=== PATIENT | male | born 1945 | race Caucasian/White ===

== ENCOUNTER 2020-06-10 07:26 | Day surgery (SDC) | payer MEDICARE, OTHER ==
[2020-06-08 11:47] LABS: BASOPHILS % (AUTO) 0.5 % (0-1); EOSINOPHILS # (AUTO) 0.2 X10'3 (0-0.9); EOSINOPHILS % (AUTO) 1.6 % (0-6); HEMATOCRIT 42.4 % (42.0-52.0); HEMOGLOBIN 14.4 g/dl (14.0-17.9); LYMPHOCYTES # (AUTO) 2.1 X10'3 (1.1-4.8); LYMPHOCYTES % (AUTO) 21.3 % (21-51); MEAN CORPUSCULAR HEMOGLOBIN 30.5 PG (27.0-31.0); MEAN CORPUSCULAR VOLUME 89.8 FL (78-98); MEAN PLATELET VOLUME 11.4 FL (7.4-10.4); MONOCYTES # (AUTO) 0.8 X10'3 (0-0.9); MONOCYTES % (AUTO) 8.1 % (2-12); NEUTROPHILS # (AUTO) 6.8 X10'3 (1.8-7.7); NEUTROPHILS % (AUTO) 68.5 % (42-75); PLATELET COUNT 179 X10'3 (140-440); RED BLOOD COUNT 4.73 X10'6 (4.70-6.10); RED CELL DISTRIBUTION WIDTH 13.5 % (11.5-14.5)
[2020-06-08 11:57] LABS: PARTIAL THROMBOPLASTIN TIME 26 SECONDS (22-32)
[2020-06-08 12:01] LABS: ALANINE AMINOTRANSFERASE 35 U/L (12-78); ALBUMIN 2.2 G/DL (3.4-5.0); ALBUMIN/GLOBULIN RATIO 0.4 (1.1-1.5); ALKALINE PHOSPHATASE 37 IU/L (46-116); ANION GAP 7 (8-16); ASPARTATE AMINO TRANSFERASE 19 U/L (10-37); BILIRUBIN,TOTAL 0.4 MG/DL (0.1-1.0); BLOOD UREA NITROGEN 25 MG/DL (7-18); BUN/CREATININE RATIO 23.6 (5.4-32.0); CALCIUM 9.6 MG/DL (8.5-10.1); CHLORIDE 107 MMOL/L (99-107); CREATININE 1.06 MG/DL (0.60-1.10); GLUCOSE 124 MG/DL (70-104); POTASSIUM 4.2 MMOL/L (3.5-5.1); SODIUM 142 MMOL/L (135-145); TOTAL CARBON DIOXIDE 27.6 MMOL/L (24-32); TOTAL PROTEIN 7.5 G/DL (6.4-8.2); eGFR 68 ML/MIN
[~2020-06-10] VITALS: Ht 172.7 cm; Wt 116.6 kg
[2020-06-10] VITALS (11 sets, daily range): BP systolic 112–177; BP diastolic 51–88
[~2020-06-10 07:26] MED LIST: ALFU10TA10 PO; ASPI-1264 PO; CEPH-194 PO; CHOL100046 PO; CLOB15OI3 TP; FINA5TAB11 PO; FISH1CAP15 PO; FOLI0.4T2 PO; HYDR-3686 PO; HYDR-3964 PO; METO100T7 PO; ROSU10TA2 PO; VITA1CAP PO; VITC500T PO; ZOLP10TA5 PO
[2020-06-10] MEDS ORDERED: nitroGLYCERIN 0.4mg SUBLingual tab SL PRN (08:05)
[2020-06-10] MEDS ORDERED: diphenhydrAMINE 25mg capsule PO PRN (08:10)
[2020-06-10] MEDS ORDERED: normal saline 1,000 ML IV SCH (08:10)
[2020-06-10] MEDS ORDERED: HYDR12.55 PO (08:23)
[2020-06-10] MEDS ORDERED: LOSA50TA64 PO (08:23)
[2020-06-10] MEDS ORDERED: NITR0.4T48 SL (08:23)
[2020-06-10] MEDS ORDERED: ASPI-611 PO (08:24)
[2020-06-10] MEDS ORDERED: LORazepam 0.5 MG tablet PO PRN (08:45)
[2020-06-10] MEDS ORDERED: iohexol 350 MG/ML 50ML vial IV ONE ×2 (09:08→09:50)
[2020-06-10] MEDS ORDERED: midazolam 2 mg/2 ml injection ONE ×2 (09:08→09:38)
[2020-06-10] MEDS ORDERED: LIDOcaine 1% (10mg/ml)w/preservative injection 20ml MDV ONE (09:08)
[2020-06-10] MEDS ORDERED: fentaNYL/PF 50MCG/1 ML 2ML syringe ONE (09:08)
[2020-06-10] MEDS ORDERED: iohexol 350MG/ML 100ml bottle IV ONE ×2 (09:09→09:49)
[2020-06-10] MEDS ORDERED: ondansetron/PF 4mg/2ml inj IV PRN (11:25)
[2020-06-10] MEDS ORDERED: OXAZEpam 15mg capsule PO PRN (11:30)
[2020-06-10] MEDS ORDERED: HYDROcodone/acetaminophen 10/325mg tab PO PRN (11:30)
[2020-06-10] MEDS ORDERED: HYDROcodone/acetaminophen 5mg/325mg tablet PO PRN (11:30)
[2020-06-10] MEDS ORDERED: proCHLORperazine 10 MG/2 ml inj IV PRN (11:30)
== END 2020-06-10 15:55 | disposition home or self-care (01) ==
LOC: SSTAY O 07:26
PROVIDERS: ATTEND Internal Medicine Cardiovascular Disease
DX: R94.39 Abnormal result of other cardiovascular function study (principal); I25.798 Atherosclerosis of other coronary artery bypass graft(s) with other forms of angina pectoris; I25.82 Chronic total occlusion of coronary artery; I10 Essential (primary) hypertension; E78.5 Hyperlipidemia, unspecified; J44.9 Chronic obstructive pulmonary disease, unspecified; I25.2 Old myocardial infarction; G47.30 Sleep apnea, unspecified; Z87.891 Personal history of nicotine dependence; Z88.8 Allergy status to other drugs, medicaments and biological substances; Z79.01 Long term (current) use of anticoagulants; Z79.899 Other long term (current) drug therapy; Y83.8 Other surgical procedures as the cause of abnormal reaction of the patient, or of later complication, without mention of misadventure at the time of the procedure; Y92.89 Other specified places as the place of occurrence of the external cause
CPT/HCPCS: 36415; 71046; 80053; 85025; 85610; 85730; 93005; 93459; 93567; 99152; 99153; C1760; C1769; J1644; J2001; J2250; J3010; J7030; Q0163; Q9967; A4620; A6258

== ENCOUNTER 2020-07-01 07:24 | Day surgery (SDC) | payer MEDICARE, OTHER ==
[~2020-07-01] VITALS: Ht 172.7 cm; Wt 117.5 kg
[2020-07-01] VITALS (14 sets, daily range): BP systolic 126–145; BP diastolic 42–76
[~2020-07-01 07:24] MED LIST changes: -ASPI-1264 PO; +ASPI-611 PO; -CEPH-194 PO; -CLOB15OI3 TP; -HYDR-3686 PO; -HYDR-3964 PO; +HYDR12.55 PO; +LOSA50TA64 PO; +NITR0.4T48 SL
[2020-07-01] MEDS ORDERED: nitroGLYCERIN 0.4mg SUBLingual tab SL PRN (07:45)
[2020-07-01] MEDS ORDERED: LORazepam 0.5 MG tablet PO PRN (07:45)
[2020-07-01] MEDS ORDERED: normal saline 1,000 ML IV SCH (07:45)
[2020-07-01] MEDS ORDERED: diphenhydrAMINE 25mg capsule PO PRN (07:45)
[2020-07-01] MEDS ORDERED: ASPI-1264 PO (08:07)
[2020-07-01 08:18] LABS: BASOPHILS # (AUTO) 0.1 X10'3 (0-0.2); BASOPHILS % (AUTO) 0.7 % (0-1); EOSINOPHILS # (AUTO) 0.2 X10'3 (0-0.9); EOSINOPHILS % (AUTO) 2.8 % (0-6); HEMATOCRIT 39.7 % (42.0-52.0); HEMOGLOBIN 13.4 g/dl (14.0-17.9); LYMPHOCYTES # (AUTO) 2.1 X10'3 (1.1-4.8); LYMPHOCYTES % (AUTO) 27.5 % (21-51); MEAN CORPUSCULAR HEMOGLOBIN 30.3 PG (27.0-31.0); MEAN CORPUSCULAR HGB CONC 33.7 g/dL (33.0-36.5); MEAN PLATELET VOLUME 11.1 FL (7.4-10.4); MONOCYTES # (AUTO) 0.8 X10'3 (0-0.9); MONOCYTES % (AUTO) 10.8 % (2-12); NEUTROPHILS # (AUTO) 4.5 X10'3 (1.8-7.7); NEUTROPHILS % (AUTO) 58.2 % (42-75); PLATELET COUNT 176 X10'3 (140-440); RED BLOOD COUNT 4.42 X10'6 (4.70-6.10); WHITE BLOOD COUNT 7.8 X10'3 (4.5-11.0)
[2020-07-01] MEDS ORDERED: NITR1PAT63 TOP (08:18)
[2020-07-01] MEDS ORDERED: NITR0.4T48 SL (08:18)
[2020-07-01] MEDS ORDERED: HYDR-3568 PO (08:18)
[2020-07-01] MEDS ORDERED: CLOBETASOL (08:18)
[2020-07-01] MEDS ORDERED: CEPH500C2 PO (08:18)
[2020-07-01] MEDS ORDERED: BETAMETHASONE (08:18)
[2020-07-01] MEDS ORDERED: HYDR-3686 PO (08:18)
[2020-07-01] MEDS ORDERED: TACR60OI TOP (08:18)
[2020-07-01] MEDS ORDERED: CLOP75TA35 PO (08:18)
[2020-07-01] MEDS ORDERED: LOSA1TAB36 PO (08:21)
[2020-07-01] MEDS ORDERED: ALPR1TAB2 PO (08:21)
[2020-07-01 08:29] LABS: ALBUMIN 3.8 G/DL (3.4-5.0); ANION GAP 10 (8-16); BLOOD UREA NITROGEN 21 MG/DL (7-18); BUN/CREATININE RATIO 22.6 (5.4-32.0); CALCIUM 8.6 MG/DL (8.5-10.1); CHLORIDE 108 MMOL/L (99-107); CREATININE 0.93 MG/DL (0.60-1.10); GLUCOSE 119 MG/DL (70-104); POTASSIUM 4.1 MMOL/L (3.5-5.1); SODIUM 144 MMOL/L (135-145); TOTAL CARBON DIOXIDE 26.1 MMOL/L (24-32); eGFR 79 ML/MIN
[2020-07-01] MEDS ORDERED: LIDOcaine 1% (10mg/ml)w/preservative injection 20ml MDV ONE (08:39)
[2020-07-01] MEDS ORDERED: midazolam 2 mg/2 ml injection ONE ×2 (08:39→09:53)
[2020-07-01] MEDS ORDERED: heparin 25,000 UNIT/250ml bag 250 ML IV ONE (08:39)
[2020-07-01] MEDS ORDERED: fentaNYL/PF 50MCG/1 ML 2ML syringe ONE (08:39)
[2020-07-01] MEDS ORDERED: heparin 1,000unit/ml 10ml vial 10 ML ONE (08:40)
[2020-07-01] MEDS ORDERED: iohexol 350 MG/1 ML 200ml bottle ONE (08:40)
[2020-07-01] MEDS ORDERED: tirofiban 5mg in NS 100mL 100 ML IV ONE (09:25)
[2020-07-01] MEDS ORDERED: clopidogrel 300mg tablet ONE (10:03)
[2020-07-01] MEDS ORDERED: OXAZEpam 15mg capsule PO PRN (10:50)
[2020-07-01] MEDS ORDERED: HYDROcodone/acetaminophen 10/325mg tab PO PRN (10:50)
[2020-07-01] MEDS ORDERED: ondansetron/PF 4mg/2ml inj IV PRN (10:50)
[2020-07-01] MEDS ORDERED: HYDROcodone/acetaminophen 5mg/325mg tablet PO PRN (10:50)
[2020-07-01] MEDS ORDERED: proCHLORperazine 10 MG/2 ml inj IV PRN (10:50)
--- NOTE | 2020-07-01 15:27 | NUR ---
Report given to OMER [facility]. (R) groin site remains stable. Pt cath'd for inability to void for 700cc clear yellow urine.
== END 2020-07-01 18:15 | disposition home or self-care (01) ==
LOC: SSTAY O 07:24
PROVIDERS: ATTEND Internal Medicine Cardiovascular Disease
DX: T82.857A Stenosis of other cardiac prosthetic devices, implants and grafts, initial encounter (principal); I25.118 Atherosclerotic heart disease of native coronary artery with other forms of angina pectoris; E78.5 Hyperlipidemia, unspecified; I10 Essential (primary) hypertension; J44.9 Chronic obstructive pulmonary disease, unspecified; M47.819 Spondylosis without myelopathy or radiculopathy, site unspecified; E66.9 Obesity, unspecified; Z68.38 Body mass index [BMI] 38.0-38.9, adult; Z96.641 Presence of right artificial hip joint; Z98.890 Other specified postprocedural states; Z87.891 Personal history of nicotine dependence; Z88.8 Allergy status to other drugs, medicaments and biological substances; Y83.8 Other surgical procedures as the cause of abnormal reaction of the patient, or of later complication, without mention of misadventure at the time of the procedure; Y92.89 Other specified places as the place of occurrence of the external cause
CPT/HCPCS: 80048; 85025; 85610; 93005; 99152; 99153; C1751; C1760; C1769; C1874; C9604; J1644; J2001; J2250; J3010; J3246; J7030; Q0163; Q9967; A4620; A6258

== ENCOUNTER 2021-10-07 07:52 | Day surgery (SDC) | payer MEDICARE, OTHER ==
[~2021-10-07] VITALS: Ht 172.7 cm; Wt 99.4 kg
[~2021-10-07 07:52] MED LIST changes: +ALPR1TAB2 PO; +ASPI-1264 PO; -ASPI-611 PO; +BETAMETHASONE; +CEPH500C2 PO; +CLOBETASOL; +CLOP75TA34 PO; -FOLI0.4T2 PO; +FOLI0.4T6 PO; +HYDR-3568 PO; +HYDR-3686 PO; -HYDR12.55 PO; +LOSA1TAB36 PO; -LOSA50TA64 PO; +NITR1PAT63 TOP; +TACR60OI TOP; -VITA1CAP PO
[2021-10-07 08:10] VITALS: BP 173/81
[2021-10-07] MEDS ORDERED: normal saline 1000ml 1,000 ML IV PRN (08:15)
[2021-10-07] MEDS ORDERED: HYDR12.55 PO (08:17)
[2021-10-07] MEDS ORDERED: LOSA100T57 PO (08:17)
[2021-10-07] MEDS ORDERED: OMEP20CA16 PO (08:18)
[2021-10-07] MEDS ORDERED: PANT40TA54 PO (08:18)
[2021-10-07] MEDS ORDERED: SUCR1TAB PO (08:18)
[2021-10-07] MEDS ORDERED: ASPI81TA52 PO (08:18)
[2021-10-07] MEDS ORDERED: midazolam 1 mg/ML 2ml injection IV PRN (08:30)
[2021-10-07] MEDS ORDERED: heparin sodium, porcine/PF 100unit/ml 5ML syringe ICATH ONE (08:30)
[2021-10-07] MEDS ORDERED: LIDOcaine 1%/PF 5ML 10 MG/ML VIAL SQ ONE (08:30)
[2021-10-07] MEDS ORDERED: fentaNYL/PF 50MCG/1 ML 2ML syringe IV PRN (08:30)
[2021-10-07] MEDS ORDERED: heparin sodium, porcine/PF 100unit/ml 5ML syringe ONE (08:34)
[2021-10-07] MEDS ORDERED: midazolam 1 mg/ML 2ml injection ONE ×2 (08:34→08:52)
[2021-10-07] MEDS ORDERED: LIDOcaine 1%/PF 5ML 10 MG/ML VIAL ONE (08:34)
[2021-10-07] MEDS ORDERED: fentaNYL/PF 50MCG/1 ML 2ML syringe ONE ×2 (08:34→08:52)
[2021-10-07 09:06] VITALS: BP 151/66
[2021-10-07 09:15] VITALS: BP 151/56
[2021-10-07 09:30] VITALS: BP 158/65
[2021-10-07 09:45] VITALS: BP 152/76
[2021-10-07 10:00] VITALS: BP 146/73
== END 2021-10-07 10:18 | disposition home or self-care (01) ==
LOC: SSTAY O 07:52
PROVIDERS: ATTEND Radiology Vascular & Interventional Radiology
DX: C15.5 Malignant neoplasm of lower third of esophagus (principal); I10 Essential (primary) hypertension; E78.5 Hyperlipidemia, unspecified; Z79.82 Long term (current) use of aspirin; Z79.899 Other long term (current) drug therapy
CPT/HCPCS: 36561; 76937; 77001; 99152; C1788; C1894; J1642; J2250; J3010; J3490; 99153

== ENCOUNTER 2021-10-25 08:19 | Day surgery (SDC) | payer MEDICARE, OTHER ==
[~2021-10-25] VITALS: Ht 172.7 cm; Wt 90.8 kg
[2021-10-25] VITALS (10 sets, daily range): BP systolic 119–176; BP diastolic 50–82
[~2021-10-25 08:19] MED LIST changes: -ALPR1TAB2 PO; -ASPI-1264 PO; +ASPI81TA52 PO; -BETAMETHASONE; -CEPH500C2 PO; -CHOL100046 PO; -CLOBETASOL; -CLOP75TA34 PO; -FOLI0.4T6 PO; -HYDR-3568 PO; -HYDR-3686 PO; +HYDR12.55 PO; +LOSA100T57 PO; -LOSA1TAB36 PO; -NITR0.4T48 SL; -NITR1PAT63 TOP; +OMEP20CA16 PO; +PANT40TA54 PO; +SUCR1TAB PO; -TACR60OI TOP; -VITC500T PO
[2021-10-25] MEDS ORDERED: PROC10TA10 PO (09:00)
[2021-10-25] MEDS ORDERED: ONDA-104 PO (09:00)
[2021-10-25] MEDS ORDERED: HYDR-3964 PO (09:03)
[2021-10-25] MEDS ORDERED: METO-411 PO (09:03)
[2021-10-25] MEDS ORDERED: FINA5TAB11 PO (09:03)
[2021-10-25] MEDS ORDERED: CHOL500049 PO (09:09)
[2021-10-25] MEDS ORDERED: FOLI0.4T14 PO (09:09)
[2021-10-25] MEDS ORDERED: VITA1TAB20 PO (09:09)
[2021-10-25] MEDS ORDERED: LOSA1TAB41 PO (09:09)
[2021-10-25] MEDS ORDERED: ASCO-157 PO (09:09)
[2021-10-25] MEDS ORDERED: LIDOcaine 1% (10mg/ml) 2ml vial ONE (09:27)
[2021-10-25 09:57] LABS: BASOPHILS % (AUTO) 0.4 % (0-1); EOSINOPHILS # (AUTO) 0.1 X10'3 (0-0.9); EOSINOPHILS % (AUTO) 1.1 % (0-6); HEMATOCRIT 38.3 % (42.0-52.0); LYMPHOCYTES # (AUTO) 0.4 X10'3 (1.1-4.8); LYMPHOCYTES % (AUTO) 5.1 % (21-51); MEAN CORPUSCULAR HGB CONC 34.1 g/dL (33.0-36.5); MEAN PLATELET VOLUME 10.6 FL (7.4-10.4); MONOCYTES # (AUTO) 0.9 X10'3 (0-0.9); NEUTROPHILS # (AUTO) 5.8 X10'3 (1.8-7.7); NEUTROPHILS % (AUTO) 81.4 % (42-75); PLATELET COUNT 137 X10'3 (140-440); RED CELL DISTRIBUTION WIDTH 13.4 % (11.5-14.5); WHITE BLOOD COUNT 7.1 X10'3 (4.5-11.0)
[2021-10-25] MEDS ORDERED: diphenhydrAMINE 50 mg/ml inj ONE (11:19)
[2021-10-25] MEDS ORDERED: glucagon, human recombinant 1mg kit ONE (11:31)
[2021-10-25] MEDS ORDERED: midazolam 1 mg/ML 2ml injection ONE (11:43)
[2021-10-25] MEDS ORDERED: fentaNYL/PF 50MCG/1 ML 2ML syringe ONE (11:43)
[2021-10-25] MEDS ORDERED: iohexol 300 MG/1 ML 50ml polymer ONE (11:53)
[2021-10-25] MEDS ORDERED: zinc oxide ointment 30gm tube TP PRN (13:25)
== END 2021-10-25 15:40 | disposition home or self-care (01) ==
LOC: SSTAY O 08:19
PROVIDERS: ATTEND Radiology Diagnostic Radiology
DX: C15.5 Malignant neoplasm of lower third of esophagus (principal); I25.10 Atherosclerotic heart disease of native coronary artery without angina pectoris; I10 Essential (primary) hypertension; K21.9 Gastro-esophageal reflux disease without esophagitis; Z79.899 Other long term (current) drug therapy; Z96.641 Presence of right artificial hip joint; Z95.1 Presence of aortocoronary bypass graft; Z98.890 Other specified postprocedural states; Z87.891 Personal history of nicotine dependence; Z72.89 Other problems related to lifestyle
CPT/HCPCS: 36415; 49440; 74018; 85025; 99152; C1713; J1200; J1610; J2250; J3010; J3490; Q9967; 99153; B4087